=== PATIENT | female | born 2000 | race African-American/Black ===

== ENCOUNTER 2023-03-19 15:22 | Emergency (ER) | payer BC, MEDICAID ==
[~2023-03-19] VITALS: Ht 162.6 cm; Wt 104.3 kg
[2023-03-19] MEDS ORDERED: LIDOCAINE HCL 1% 20 ML VIAL ONE (17:28)
[2023-03-19] MEDS ORDERED: CLINDAMYCIN PHOSPHATE IV 600 MG in IV DEXTROSE 5% 100 ML IV ONE (17:30)
[2023-03-19] MEDS ORDERED: ONDANSETRON 4 MG/2 ML VIAL IV ONE (17:30)
[2023-03-19] MEDS ORDERED: LIDOCAINE HCL 1% 20 ML VIAL IJ ONE (17:30)
[2023-03-19] MEDS ORDERED: HYDROMORPHONE 1 MG/1 ML DISP.SYRIN IV ONE (17:30)
[2023-03-19] MEDS ORDERED: HYDROMORPHONE 1 MG/1 ML DISP.SYRIN ONE (17:59)
[2023-03-19] MEDS ORDERED: CLINDAMYCIN 600 MG PIGGYBACK**ER OMNI IV ONE (18:00)
[2023-03-19] MEDS ORDERED: ONDANSETRON 4 MG/2 ML VIAL ONE (18:00)
[2023-03-19] MEDS ORDERED: SULF1TAB48 PO (18:23)
[2023-03-19] MEDS ORDERED: HYDR-3980 PO (18:23)
[2023-03-19 19:08] VITALS: BP 143/78; TEMP 98; O2SAT 98
== END 2023-03-19 19:10 | disposition home or self-care (01) ==
LOC: ER 15:26
DX: L73.2 Hidradenitis suppurativa (principal); L73.8 Other specified follicular disorders; Z79.899 Other long term (current) drug therapy
CPT/HCPCS: 99284; 96365; 10060; 96375; J3490 ×3; J2405; J1170; A4663

== ENCOUNTER → 2023-07-12 | Emergency (ER) | payer BC ==
[~2023-07-12] VITALS: Ht 165.1 cm; Wt 99.8 kg
[~2023-07-12] MED LIST: HYDR-3980 PO; HYDR-4209 PO; HYDROCODONE/APAP 5-325MG TABLET ONE; HYDROCODONE/APAP 5-325MG TABLET PO ONE; IBUP-1958 PO; IBUPROFEN 800 MG TABLET ONE; IBUPROFEN 800 MG TABLET PO ONE; SULF1TAB48 PO
[2023-07-12 18:03] LABS: *URINE HCG, QUAL NEGATIVE (NEGATIVE)
[2023-07-12 18:45] VITALS: BP 100/57; O2SAT 100
== END | disposition home or self-care (01) ==
LOC: ER 16:05
DX: L02.31 Cutaneous abscess of buttock (principal); L03.317 Cellulitis of buttock; Z79.899 Other long term (current) drug therapy; R10.2 Pelvic and perineal pain
CPT/HCPCS: 84703; A4606; A4663